=== PATIENT | female | born 1985 | race African-American/Black ===

== ENCOUNTER → 2016-05-29 10:06 | Outpatient (CLI) | payer MEDICAID ==
[~2016-05-29 10:06] MED LIST: GLUCOTROL ER2.5 MG PO; GLYBURIDE2.5 MG PO; HYDROCODON-ACE1 EAC7 PO; IBUPROFEN600 MG PO; PRENATABS RX TA1 TAB PO
--- NOTE | 2016-05-29 14:29 | NUR ---
Nutrition education for CORRINE: Pt reports drinking a lot of juice, regular soda, Diogenes Aid, sweet tea every day. Pt eats fast food every day and skips lunch every day. Pt does drink water. Pt likes salad and uses very little salad dressing. Pt does not get any physical activity. Pts glucose has been running very high since last week according to her glucose log. Pt eats a lot of starchy vegetables every day. Reviewed CHO containing foods and the affect CHO have on glucose. Reviewed portion sizes of common CHO foods. Reviewed sample menus with emphasis on CHO. RDN stressed the importance of never skipping meals; eat meals about the same time every day and limit CHO to no more than 60 gms CHO at meals and 30 gms CHO at snacks. Pt also advised to drink only water to quench thrist and with meals; eliminate all sugary drinks. Pt with fair understanding of information provided. RDN feels pt is going to try to be compliant with informatiom provided. Provided pt with printed diet information and RDN name and phone number. RDN will be available if needed. Thank you for the consult.
[2016-07-23 09:15] VITALS: BMI 33.9
== END | disposition home or self-care (01) ==
LOC: D.FANS 10:06
DX: O24.419 Gestational diabetes mellitus in pregnancy, unspecified control (principal)

== ENCOUNTER → 2016-06-05 10:50 | Outpatient (CLI) | payer MEDICAID ==
[2016-07-23 09:15] VITALS: BMI 33.9
== END | disposition home or self-care (01) ==
LOC: D.LDO 10:50
DX: O16.3 Unspecified maternal hypertension, third trimester (principal); Z3A.32 32 weeks gestation of pregnancy; O36.8130 Decreased fetal movements, third trimester, not applicable or unspecified; O24.913 Unspecified diabetes mellitus in pregnancy, third trimester

== ENCOUNTER → 2016-06-08 11:27 | Outpatient (CLI) | payer MEDICAID ==
[2016-07-23 09:15] VITALS: BMI 33.9
== END | disposition home or self-care (01) ==
LOC: D.LDO 11:27
DX: O24.419 Gestational diabetes mellitus in pregnancy, unspecified control (principal); O16.3 Unspecified maternal hypertension, third trimester; Z3A.32 32 weeks gestation of pregnancy

== ENCOUNTER → 2016-06-10 12:39 | Outpatient (CLI) | payer MEDICAID ==
[2016-07-23 09:15] VITALS: BMI 33.9
== END | disposition home or self-care (01) ==
LOC: D.LDO 12:39
DX: O13.3 Gestational [pregnancy-induced] hypertension without significant proteinuria, third trimester (principal); Z3A.32 32 weeks gestation of pregnancy; O24.913 Unspecified diabetes mellitus in pregnancy, third trimester

== ENCOUNTER → 2016-06-13 10:31 | Outpatient (CLI) | payer MEDICAID ==
[2016-07-23 09:15] VITALS: BMI 33.9
== END | disposition home or self-care (01) ==
LOC: D.LDO 10:31
DX: O24.419 Gestational diabetes mellitus in pregnancy, unspecified control (principal); O10.913 Unspecified pre-existing hypertension complicating pregnancy, third trimester; Z3A.33 33 weeks gestation of pregnancy

== ENCOUNTER → 2016-06-17 12:40 | Outpatient (CLI) | payer MEDICAID ==
[2016-06-17 13:31] LABS: BASOPHILS 0.1 % (0.0-2.0); EOSINOPHILS 0.5 % (0-7); HEMATOCRIT 39.3 % (36.0-48.0); HEMOGLOBIN 13.3 g/dL (12-16); IMMATURE GRANULOCYTES 0.1 % (0-5); LYMPHOCYTES 14.1 % (15-50); MCH 30.6 pg (26.0-34.0); MCHC 33.8 g/dL (31.0-37.0); MCV 90.3 fL (80.0-100.0); MEAN PLATELET VOLUME 11.3 fL (7.4-10.4); MONOCYTES 8.2 % (2-11); PLATELET COUNT 179 10x3/uL (130-400); RBC 4.35 10x6/uL (4.00-5.40); RDW 12.5 % (11.5-14.5); WBC 8.7 10x3/uL (4.8-10.8)
[2016-06-17 13:46] LABS: ALBUMIN 3.1 g/dL (3.4-5.0); ALKALINE PHOSPHATASE 122 U/L (46-116); ALT (SGPT) 27 U/L (10-68); CALC OSMOLALITY 269 mosm/kg (275-300); CALCIUM 8.6 mg/dL (8.5-10.1); CARBON DIOXIDE 24.2 mmol/L (21.0-32.0); CHLORIDE - SERUM 103 mmol/L (98-107); CREATININE - SERUM 0.7 mg/dL (0.6-1.3); GLUCOSE 95 mg/dL (74-106); POTASSIUM - SERUM 4.3 mmol/L (3.5-5.1); PROTEIN - SERUM 6.7 g/dL (6.4-8.2); SODIUM 136 mmol/L (136-145); UREA NITROGEN 7 mg/dL (7-18); eGFR NON AFRICAN AMERICAN > 90 mL/min (90-120)
[2016-06-17 13:53] LABS: APPEARANCE CLEAR (CLEAR); BILIRUBIN NEGATIVE (NEGATIVE); COLOR STRAW (YELLOW); GLUCOSE NEGATIVE (NEGATIVE); KETONE NEGATIVE (NEGATIVE); LEUKOCYTE ESTERASE NEGATIVE (NEGATIVE); NITRITE NEGATIVE (NEGATIVE); PROTEIN NEGATIVE (NEGATIVE); UROBILINOGEN NORMAL (NORMAL)
[2016-07-23 09:15] VITALS: BMI 33.9
== END | disposition home or self-care (01) ==
LOC: D.LDO 12:40
PROVIDERS: Obstetrics & Gynecology
DX: Z34.83 Encounter for supervision of other normal pregnancy, third trimester (principal); R51 Headache

== ENCOUNTER → 2016-06-20 12:13 | Outpatient (CLI) | payer MEDICAID ==
[2016-07-23 09:15] VITALS: BMI 33.9
== END | disposition home or self-care (01) ==
LOC: D.LDO 12:13
DX: O16.3 Unspecified maternal hypertension, third trimester (principal); Z3A.34 34 weeks gestation of pregnancy; O24.913 Unspecified diabetes mellitus in pregnancy, third trimester

== ENCOUNTER → 2016-06-24 12:45 | Outpatient (CLI) | payer MEDICAID ==
[2016-07-23 09:15] VITALS: BMI 33.9
== END | disposition home or self-care (01) ==
LOC: D.LDO 12:45
DX: O16.3 Unspecified maternal hypertension, third trimester (principal); O24.429 Gestational diabetes mellitus in childbirth, unspecified control; Z3A.34 34 weeks gestation of pregnancy; Z37.0 Single live birth

== ENCOUNTER → 2016-07-01 12:43 | Outpatient (CLI) | payer MEDICAID ==
[2016-07-23 09:15] VITALS: BMI 33.9
== END | disposition home or self-care (01) ==
LOC: D.LDO 12:43
DX: O13.3 Gestational [pregnancy-induced] hypertension without significant proteinuria, third trimester (principal); Z3A.35 35 weeks gestation of pregnancy; O24.913 Unspecified diabetes mellitus in pregnancy, third trimester

== ENCOUNTER 2016-07-03 21:04 | Outpatient (CLI) | payer MEDICAID ==
[2016-07-03 22:09] LABS: HEMATOCRIT 37.2 % (36.0-48.0); HEMOGLOBIN 12.6 g/dL (12-16); MCH 29.9 pg (26.0-34.0); MCHC 33.9 g/dL (31.0-37.0); MCV 88.2 fL (80.0-100.0); RBC 4.22 10x6/uL (4.00-5.40); RDW 12.5 % (11.5-14.5); WBC 6.9 10x3/uL (4.8-10.8)
[2016-07-03 22:22] LABS: CALC OSMOLALITY 272 mosm/kg (275-300); CALCIUM 9.5 mg/dL (8.5-10.1); CARBON DIOXIDE 25.3 mmol/L (21.0-32.0); CHLORIDE - SERUM 102 mmol/L (98-107); CREATININE - SERUM 0.7 mg/dL (0.6-1.3); GLUCOSE 99 mg/dL (74-106); POTASSIUM - SERUM 3.8 mmol/L (3.5-5.1); SODIUM 137 mmol/L (136-145); UREA NITROGEN 10 mg/dL (7-18); URIC ACID 7.3 mg/dL (2.6-7.2); eGFR NON AFRICAN AMERICAN > 90 mL/min (90-120)
[2016-07-05 13:31] LABS: PROTEIN - URINE 10.5 mg/dL (0.0-11.9)
[2016-07-23 09:15] VITALS: BMI 33.9
== END 2016-07-04 03:44 | disposition home or self-care (01) ==
LOC: D.LDO 21:04 → D.LD 23:00 → D.LDO 07-04 03:44
PROVIDERS: Obstetrics & Gynecology
DX: Z34.83 Encounter for supervision of other normal pregnancy, third trimester (principal); G44.209 Tension-type headache, unspecified, not intractable

== ENCOUNTER → 2016-07-08 10:45 | Outpatient (CLI) | payer MEDICAID ==
[2016-07-23 09:15] VITALS: BMI 33.9
== END | disposition home or self-care (01) ==
LOC: D.LDO 10:45
DX: O24.419 Gestational diabetes mellitus in pregnancy, unspecified control (principal); O36.8130 Decreased fetal movements, third trimester, not applicable or unspecified; Z3A.36 36 weeks gestation of pregnancy; O16.3 Unspecified maternal hypertension, third trimester

== ENCOUNTER → 2016-07-11 12:20 | Outpatient (CLI) | payer MEDICAID ==
[2016-07-23 09:15] VITALS: BMI 33.9
== END | disposition home or self-care (01) ==
LOC: D.LDO 12:20
DX: O24.419 Gestational diabetes mellitus in pregnancy, unspecified control (principal); O16.3 Unspecified maternal hypertension, third trimester; Z3A.37 37 weeks gestation of pregnancy

== ENCOUNTER → 2016-07-15 10:55 | Outpatient (CLI) | payer MEDICAID ==
[2016-07-15 12:15] LABS: BASOPHILS 0.2 % (0.0-2.0); EOSINOPHILS 0.7 % (0-7); HEMATOCRIT 38.5 % (36.0-48.0); HEMOGLOBIN 12.8 g/dL (12-16); IMMATURE GRANULOCYTES 0.2 % (0-5); MCHC 33.2 g/dL (31.0-37.0); MCV 87.3 fL (80.0-100.0); MEAN PLATELET VOLUME 11.9 fL (7.4-10.4); MONOCYTES 7.8 % (2-11); NEUTROPHILS 75.1 % (40-80); PLATELET COUNT 137 10x3/uL (130-400); RBC 4.41 10x6/uL (4.00-5.40); RDW 12.2 % (11.5-14.5)
[2016-07-15 12:47] LABS: CALC OSMOLALITY 275 mosm/kg (275-300); CALCIUM 8.3 mg/dL (8.5-10.1); CARBON DIOXIDE 21.7 mmol/L (21.0-32.0); CHLORIDE - SERUM 104 mmol/L (98-107); CREATININE - SERUM 0.7 mg/dL (0.6-1.3); GLUCOSE 108 mg/dL (74-106); POTASSIUM - SERUM 4.2 mmol/L (3.5-5.1); SODIUM 138 mmol/L (136-145); UREA NITROGEN 11 mg/dL (7-18); URIC ACID 7.3 mg/dL (2.6-7.2); eGFR NON AFRICAN AMERICAN > 90 mL/min (90-120)
[2016-07-15 13:54] LABS: ALBUMIN 2.6 g/dL (3.4-5.0); BILIRUBIN - DIRECT 0.07 mg/dL (0.00-0.30); BILIRUBIN - INDIRECT 0.18 mg/dL (0.00-1.00); BILIRUBIN - TOTAL 0.25 mg/dL (0.2-1.3); PROTEIN - SERUM 6.3 g/dL (6.4-8.2)
[2016-07-17 10:03] LABS: PROTEIN - URINE 14.6 mg/dL (0.0-11.9)
[2016-07-23 09:15] VITALS: BMI 33.9
== END | disposition home or self-care (01) ==
LOC: D.LDO 10:55
PROVIDERS: Obstetrics & Gynecology
DX: O24.419 Gestational diabetes mellitus in pregnancy, unspecified control (principal); O16.3 Unspecified maternal hypertension, third trimester; Z3A.37 37 weeks gestation of pregnancy

== ENCOUNTER → 2016-07-18 10:50 | Outpatient (CLI) | payer MEDICAID ==
[2016-07-23 09:15] VITALS: BMI 33.9
== END | disposition home or self-care (01) ==
LOC: D.LDO 10:50
DX: O10.913 Unspecified pre-existing hypertension complicating pregnancy, third trimester (principal); Z3A.38 38 weeks gestation of pregnancy

== ENCOUNTER 2016-07-22 05:05 | Inpatient (IN) | payer MEDICAID ==
[~2016-07-22] VITALS: Ht 175.3 cm; Wt 104.3 kg
[2016-07-22 05:51] LABS: HEMATOCRIT 36.7 % (36.0-48.0); HEMOGLOBIN 12.3 g/dL (12-16); MCH 29.3 pg (26.0-34.0); MCHC 33.5 g/dL (31.0-37.0); MCV 87.4 fL (80.0-100.0); MEAN PLATELET VOLUME 12.5 fL (7.4-10.4); RBC 4.2 10x6/uL (4.00-5.40); RDW 12.5 % (11.5-14.5); WBC 6.9 10x3/uL (4.8-10.8)
[2016-07-22] MEDS ORDERED: GLUCOTROL ER2.5 MG PO (05:56)
[2016-07-22] MEDS ORDERED: HYDROCODON-ACE1 EAC7 PO (05:57)
[2016-07-22] MEDS ORDERED: GLYBURIDE2.5 MG PO (05:58)
[2016-07-22] MEDS ORDERED: PRENATABS RX TA1 TAB PO (05:58)
[2016-07-22 06:03] VITALS: BP 130/79; BMI 34.0
[2016-07-22 06:36] LABS: APPEARANCE CLEAR (CLEAR); BILIRUBIN NEGATIVE (NEGATIVE); COLOR STRAW (YELLOW); GLUCOSE NEGATIVE (NEGATIVE); KETONE NEGATIVE (NEGATIVE); LEUKOCYTE ESTERASE NEGATIVE (NEGATIVE); NITRITE NEGATIVE (NEGATIVE); PROTEIN NEGATIVE (NEGATIVE); UROBILINOGEN NORMAL (NORMAL)
[2016-07-22 06:40] LABS: UDS - AMPHET NEGATIVE QUAL (NEGATIVE); UDS - BARB NEGATIVE QUAL (NEGATIVE); UDS - BENZO NEGATIVE QUAL (NEGATIVE); UDS - COCAINE NEGATIVE QUAL (NEGATIVE); UDS - METH NEGATIVE QUAL (NEGATIVE); UDS - OPIATE NEGATIVE QUAL (NEGATIVE); UDS - PCP NEGATIVE QUAL (NEGATIVE); UDS - THC POSITIVE QUAL (NEGATIVE)
--- NOTE | 2016-07-22 19:20 | NUR ---
PT RECEIVED TO MY CARE IN LDR 1277. PT RESTING IN BED IN RIGHT LATERAL POSITION IN NO ACUTE DISTRESS. PT IS A 31YO @ 38.6 WKS IUP ADMITTED THIS AM FOR INDUCTION OF LABOR R/T GESTATIONAL HTN AND GESTATIONAL DM. PT WITH FAILED PITOCIN INDUCTION, PER DR. RICARDO, AND SCHEDULED FOR PRIMARY C/S IN AM @ 0730. AAOX3. HR REGULAR. LUNGS CTAB. ABDOMEN GRAVID AND NON TENDER. PT DENIES LOF OR VAGINAL BLEEDING. STATES +FM. SCD'S IN PLACE TO LOWER EXTREMITIES BILATERALLY. 1+EDEMA NOTED TO UPPER AND LOWER EXTREMITIES BILATERALLY. 18G IV IN PLACE TO RIGHT HAND, FLUSHED WITH 5CC NS AT THIS TIME WITHOUT DIFFICULTY. NO REDNESS OR EDEMA NOTED AT SITE. PT DENIES TRACY, VISION CHANGES, OR RUQ PAIN. VS STABLE AND FHR 130'S. POC DISCUSSED WITH PT, QUESTIONS ANSWERED. DISCUSSED PRE-OP PLAN FOR PT IN AM. QUESTIONS ANSWERED. SUPPLIES PROVIDED TO PT TO SHOWER. FOOD PROVIDED TO PT BY FAMILY, INFORMED PT TO BE NPO AFTER MIDNIGHT. PT DOES DESIRE AMBIEN TO ASSIST WITH SLEEPING. ORDER IN PLACE, WILL PROVIDE WHEN PT REQUESTS. PT DENIES ANY FURTHER NEEDS AT THIS TIME. BED IN LOW POSITION, SIDE RAILS UP TIMES 2, CALL LIGHT AND PHONE IN REACH. SO REMAINS AT PT BS FOR SUPPORT AND ASSISTANCE. WILL CONT TO MONITOR PT STATUS.
[2016-07-22 19:33] VITALS: BP 118/67
--- NOTE | 2016-07-22 20:07 | NUR ---
RN TO PT BS. FSBS 120, WILL CONT TO MONITOR, PT READY TO SLEEP AND NPO AFTER MIDNIGHT. AMBIEN 10MG PROVIDED TO PT PER REQUEST WITH ICE WATER. PT DENIES ANY FURTHER NEEDS. BED IN LOW POSITION, SIDE RAILS UP TIMES 2, CALL LIGHT AND PHONE IN REACH. SO REMAINS AT PT BS FOR SUPPORT AND ASSISTANCE. WILL CONT TO MONITOR PT STATUS.
--- NOTE | 2016-07-22 22:10 | NUR ---
RN TO PT BS FOR ROUNDS. PT RESTING IN BED IN SEMI-FOWLERS POSITION, WITH EYES CLOSED, IN NO ACUTE DISTRESS. RESPIRATIONS EVEN AND UNLABORED. BED IN LOW POSITION, SIDE RAILS UP TIMES 2, CALL LIGHT AND PHONE IN REACH. WILL CONT TO MONITOR PT STATUS.
[2016-07-23] VITALS (15 sets, daily range): BP systolic 98–155; BP diastolic 66–86; Ht 175.3 cm; Wt 104.3 kg
--- NOTE | 2016-07-23 00:04 | NUR ---
RN TO PT BS. PT SITTING IN BED IN NO ACUTE DITRESS. VS TAKEN, WNL. FHR 150'S-160'S WITH AUDIABLE MOVEMENT NOTED. FSBS 63, PT ABOUT TO EAT SNACK THAT WAS PROVIDED BY FAMILY PRIOR TO BEING NPO AFTER MIDNIGHT. WILL RECHECK FSBS IN 4 HOURS. PT DENIES ANY FURTHER NEEDS AT THIS TIME. BED IN LOW POSITION, SIDE RAILS UP TIMES 2, CALL LIGHT AND PHONE IN REACH. SO REMAINS AT PT BS FOR SUPPORT AND ASSISTANCE. WILL CONT TO MONITOR PT STATUS.
--- NOTE | 2016-07-23 01:53 | NUR ---
RN TO PT BS FOR ROUNDS. PT SITTING IN BED IN NO ACUTE DISTRESS. PT DENIES ANY NEEDS AT THIS TIME. BED IN LOW POSITION, SIDE RAILS UP TIMES 2, CALL LIGHT AND PHONE IN REACH. SO REMAINS AT PT BS FOR SUPPORT AND ASSISTANCE.
--- NOTE | 2016-07-23 04:10 | NUR ---
RN TO PT BS. PT SITTING IN BED IN NO ACUTE DISTRESS. VS TAKEN, WNL. FHR 140'S-150'S. FSBS TAKEN, 123, NO ACTION TAKEN, PT NPO. PT DENIES ANY NEEDS AT THIS TIME. BED IN LOW POSITION, SIDE RAILS UP TIMES 2, CALL LIGHT AND PHONE IN REACH. SO REMAINS AT PT BS FOR SUPPORT AND ASSISTANCE. WILL CONT TO MONITOR PT STATUS.
--- NOTE | 2016-07-23 05:48 | NUR ---
CHLORIHEXIDINE WIPES PROVIDED TO PT WITH INSTRUCTIONS ON USE. PT VERBALIZED UNDERSTANDING.
--- NOTE | 2016-07-23 06:14 | NUR ---
RN TO PT BS TO PREPARE PT FOR OR. VS TAKEN, WNL, FHR 130'S-140'S. FSBS TAKEN, 136, PT STATES SHE HAS NOT HAD ANYTHING BY MOUTH SINCE 0400 FSBS WAS TAKEN. NO ACTION TAKEN FOR FSBS, PT CONT TO BE NPO FOR PRIMARY C/S. NO ABDOMINAL CLIP NEEDED. SCD'S IN PLACE. LR SET TO INFUSE VIA PUMP AT 500ML TO EXISTING 18G SL IN LEFT HAND, NO REDNESS OR EDEMA NOTED AT SITE. OR SUIT PROVIDED TO PT. PT DENIES ANY FURTHER NEEDS AT THIS TIME. BED IN LOW POSITION, SIDE RAILS UP TIMES 2, CALL LIGHT AND PHONE IN REACH. SO REMAINS AT PT BS FOR SUPPORT AND ASSISTANCE.
[2016-07-23 07:26] LABS: RAPID PLASMA REAGIN Non Reactive (Non Reactive)
--- NOTE | 2016-07-23 09:20 | NUR ---
PATIENT RECEIVED TO ROOM 1214 ACCOMPANIED BY RECOVERY ROOM NURSE. SHE IS AWAKE AND ALERT, REMAINS NUMB FROM THE SPINAL BLOCK. SCD'S INITIATED, VSS, IVF REASSERTED TO THE LEFT HAND. THE INSERTION SITE IS PATENT, WITHOUT REDNESS, SWELLING. HER DRESSING TO THE BIKINI INCISION IS C/D/I. HER FUNDUS IS FIRM U/1 AND MIDLINE. HER BLEEDING IS MODERATE SHE IS TURNED FROM SIDE TO SIDE TO EXCHANGE THE PADS UNDERNEATH HER. [employer] DRIVER INITIATED AND EXPLAINED. THE PATINET VERBALIZES AND DEMONSTRATES UNDERSTANDING. MARTI CATHETER IS PATIENT TO BEDISDE DRAINAGE BAG. LEFT HER WITH FOB. [employer] DRIVER AND CALL LIGHT WITHIN HER REACH.
--- NOTE | 2016-07-23 09:50 | NUR ---
ADITIONAL BLANKET PROVIDED PER REQUEST. FF AND MIDLINE, REMAINS U/1, BLEEDING IS SMALL. FAMILY STEPPED OUT TO ALLOW FOR ASSESSMENT. COOLER WORKER IN USE. SHE IS BEGINING TO FEEL THE PRESSURE OF PALPATION.
--- NOTE | 2016-07-23 10:16 | NUR ---
PATIENT RESTING WITH HOB UP 45 DEGREES. USING PACE ANALYST. RATES PAIN A 4-5 IN HER ABDOMEN/INCISION. IVF INFUSING PER ORDERS TO THE LEFT HAND. LAID HER FLAT. HER BLEEDING IS SMALL. FF, MIDLINE, U/2. SHE WINCES AND BREATHS THROUGHT THE PAIN OF PALPATION. NO GUSHES OF BLOOD NOTED FROM THE VAGINA. HER MOTHER, FATHER AND FOB ARE AT THE BEDSIDE. FRESH WATER PROVIDED.
[2016-07-23 10:38] LABS: BASOPHILS 0 % (0.0-2.0); EOSINOPHILS 0.3 % (0-7); HEMATOCRIT 35.9 % (36.0-48.0); HEMOGLOBIN 11.8 g/dL (12-16); IMMATURE GRANULOCYTES 0.3 % (0-5); LYMPHOCYTES 14.1 % (15-50); MCH 28.8 pg (26.0-34.0); MCHC 32.9 g/dL (31.0-37.0); MCV 87.6 fL (80.0-100.0); MEAN PLATELET VOLUME 12.2 fL (7.4-10.4); MONOCYTES 5.9 % (2-11); NEUTROPHILS 79.4 % (40-80); PLATELET COUNT 135 10x3/uL (130-400); RDW 12.6 % (11.5-14.5); WBC 6.1 10x3/uL (4.8-10.8)
--- NOTE | 2016-07-23 11:20 | NUR ---
PATIENT GIVEN TORADOL FOR PAIN. HER BLEEDING REMAINS LIGHT, FF, MIDLINE. PERIPADS CHANGED. HER MOTHER REMAINS AT HER BEDSIDE. SHE IS ANXIOUS TO SEE HER INFANT.
--- NOTE | 2016-07-23 12:39 | NUR ---
PATIENT'S PERIPAD IS SATURATED. HER FUNDUS BECAME FIRM AFTER DEEP, GENTLE PALPATION, THERE WASN'T ANY VAGINAL BLEEDING NOTED DURING PALPATION. HER CATHETER HAS 150CC OF URINE TOT HE UROMETER, EMPTIED. CALL LIGHT WITHIN REACH. SHE DENIES PAIN UNLESS "I MOVE THE WRONG WAY OR YOU'R PRESSING ON IT." IVF CONTINUE TO INFUSE. IT SOLUTIONS ARCHITECT IN USE. SHE IS ANXIOUS TO SEE HER BABY.
--- NOTE | 2016-07-23 14:01 | NUR ---
ASSISTED PATO WITH . ABLE TO LATCH ON THE LEFT BREAST WITH A NIPPLE SHIELD. FOB AND PATO'S MOTHER ARE HELPFUL TO HER. ENCOURAGED PATIENTCE AND PERSISTENCE. PATIENT STATES THAT HER PAIN IS CURRENTLY CONTROLLED. URINE IS PATENT TO THE BEDSIDE DRAINAGE.
--- NOTE | 2016-07-23 14:40 | NUR ---
PATIENT'S FF, MIDLINE, DEEP U/2. BLEEDING MODERATE. PERIPAD AND PADS CHANGED. STATLOCK SECURED TO THE RIGHT LEG. URINE PATENT TO THE BEDSIDE DRAINAGE BAG. IV CATHETER REINFORCED TO HER R HAND WITH TAPE. EDUCATED GM OF TO SWADDLE THE . PATINET DENIES DISCOMFORT AND REPOSITIONS SELF IN THE BED WELL.
--- NOTE | 2016-07-23 15:44 | NUR ---
PATIENT VOMITED 350CC OF CLEAR ORANGE LIQUID INTO AN EMISIS BAG. SHE STAT ESHTAT SHE HAS BEEN INTERMITTENTLY NAUSEOUS SINCE BEFORE HER . ZOFRAN GIVEN. EDUCATED REGARDING HER NEXT POSSIBLE DOSE AND
--- NOTE | 2016-07-23 16:02 | NUR ---
SPOKE WITH DR. RICARDO, REPORTED N/V. RECEIVED ORDER FOR BEDADRYL FOR PATINET C/O ITCHING. DISCUSSED FSBS. WILL DELAY CHECKING HER AGAIN UNTIL SHE HAS RESUMED REGULAR DIET.
--- NOTE | 2016-07-23 17:28 | NUR ---
PATIENT WITH 100CC OF URINE TO THE BEDSIDE DRAINAGE BAG. VSS, DENIES NAUSEA AND STATES THE ITCHING IS "MUCH BETTER". IVF CONTINUE TO INFUSE, BLEEDING REMAINS SMALL TO MODERATE. CALL LIGHT WITHIN REACH. PROVIDED HER WITH A POPSCICLE PER REQUEST. MOTHER AT THE BEDSIDE HOLDING . MONITORING.
[2016-07-23 17:52] LABS: BASOPHILS 0.1 % (0.0-2.0); EOSINOPHILS 0.3 % (0-7); HEMATOCRIT 36.7 % (36.0-48.0); IMMATURE GRANULOCYTES 0.1 % (0-5); LYMPHOCYTES 12.4 % (15-50); MCHC 32.7 g/dL (31.0-37.0); MCV 88.6 fL (80.0-100.0); MEAN PLATELET VOLUME 12.5 fL (7.4-10.4); MONOCYTES 5.9 % (2-11); NEUTROPHILS 81.2 % (40-80); PLATELET COUNT 121 10x3/uL (130-400); RBC 4.14 10x6/uL (4.00-5.40); RDW 12.5 % (11.5-14.5)
--- NOTE | 2016-07-23 18:03 | NUR ---
BLEEDING SCANT, PERIPADS SMUDGED, CHANGED. 800CC OF URINE EMPTIED FROM MARTI COLLECTION BAG. IV SITE REMAINS WITHOUT REDNESS, IRRITATION. PATIENT DENIES PAIN. STATES THAT SHE WANTS TO REST FOR A WHILE. INFANT TO NURSERY. PARENTS OUT FOR A WALK. CALL LIGHT IS WITHIN HER REACH. LIGHTS OUT.
[2016-07-23 18:05] LABS: WBC 9.7 10x3/uL (4.8-10.8)
--- NOTE | 2016-07-23 19:15 | NUR ---
PT RECEIVED SITTING UP IN BED AWAKE AND ALERT. FOB AT BEDSIDE. VSS. IV NOTED TO LEFT HAND. INFUSING NS WITH PIT @ 125 CC/HR WITH DILAUDID LEAD INFORMATICA DEVELOPER. PATENT. DRESSING CDI. PT RATES PAIN 6/10. HEART RRR. LUNG SOUNDS CLEAR BILATERALLY. BOWEL SOUNDS ACTIVE X4 QUAD. LOW TRANSVERSE INCISION NOTED TO ABDOMEN WITH DRESSING. CDI. FFM. ABDOMEN SOFT WITH TENDERNESS NOTED. SCANT LOCHIA RUBRA NOTED TO ROSY PAD. REPLACED WITH CLEAN PAD. SCDS NOTED TO BLE. PT REQUESTS ICE PACK AT THIS TIME. DENIES OTHER NEEDS. BED LOW. PHONE AND CALL LIGHT IN REACH. SRX2.
--- NOTE | 2016-07-23 20:12 | NUR ---
CHANGED PT INSEMINATOR FROM DILAUDID TO DEMEROL AT THIS TIME PER ORDERS DUE TO PT C/O ITCHING. WILL CONTINUE TO MONITOR. PT DENIES NEEDS. FOB AT BEDSIDE. IN PTS ARMS.
--- NOTE | 2016-07-23 20:50 | NUR ---
REASSESSED PTS PAIN. RATES PAIN /10. REQUESTS ICE WATER AND A POPSICLE AT THIS TIME. DENIES OTHER NEEDS. BED LOW. PHONE AND CALL LIGHT IN REACH. SRX2.
--- NOTE | 2016-07-23 22:26 | NUR ---
PT LYING IN BED WITH AND FOB AT BEDSIDE. CHANGED ROSY PAD AND BLUE PAD UNDER PT. MODERATE LOCHIA RUBRA NOTED TO ROSY PAD. SCANT LOCHIA RUBRA NOTED TO BLUE PAD. ADMINISTERED BENADRYL IVP AT THIS TIME PER ORDERS FOR PTS C/O ITCHING. PT DENIES OTHER NEEDS AT THIS TIME. BED LOW. PHONE AND CALL LIGHT IN REACH. SRX2.
--- NOTE | 2016-07-23 22:50 | NUR ---
MODERATE LOCHIA RUBRA NOTED TO ROSY PAD WITH TWO PEA SIZE CLOTS. PLACED NEW ROSY PAD ON PT. DENIES NEEDS AT THIS TIME.
--- NOTE | 2016-07-23 23:54 | NUR ---
PT SITTING UP IN BED. AWAKE AND ALERT. BP 98/69 P-74 O2-97% RESP-18 EVEN, NON-LABORED. SMALL LOCHIA RUBRA NOTED TO ROSY PAD. PLACED CLEAN PAD ON PT. EMPTIED 900 CC FROM MARTI BAG AT THIS TIME. PT RATES PAIN /. PT REQUESTS INFANT BE HANDED TO HER AT THIS TIME SO SHE CAN BREASTFEED. DENIES OTHER NEEDS. BED LOW. PHONE AND CALL LIGHT IN REACH. SRX2
--- NOTE | 2016-07-24 01:58 | NUR ---
PT LYING IN BED RESTING QUIETLY WITH EYES CLOSED. AROUSED EASILY. MODERATE LOCHIA RUBRA NOTED TO ROSY PAD AND BLUE PAD UNDER PT. PLACED CLEAN PADS UNDER PT. REQUESTS MORE ICE FOR ICE PACK AT THIS TIME. DENIES OTHER NEEDS. BEDL LOW. PHONE AND CALL LIGHT IN REACH. SRX2.
[2016-07-24 04:40] VITALS: BP 127/76
--- NOTE | 2016-07-24 04:40 | NUR ---
PT RESTING QUIETLY AT THIS TIME WATCHING TV. FOB AT BEDSIDE. VSS. EMPTIED 900 CC FROM MARTI AT THIS TIME. ADMINISTERED BENADRYL IVP PER ORDERS FOR PT C/O ITCHING. PT REQUESTS ICE PACK AND ANOTHER PILLOW AT THIS TIME. HELPED PT REPOSITION TO RIGHT SIDE. PT DENIES FURTHER NEEDS. BED LOW. PHONE AND CALL LIGHT IN REACH. SRX2.
--- NOTE | 2016-07-24 06:33 | NUR ---
PT FSBS 74 AT THIS TIME. PT DENIES NEEDS. BED LOW. PHONE AND CALL LIGHT IN REACH. SRX2.
[2016-07-24 06:52] LABS: BASOPHILS 0.2 % (0.0-2.0); HEMATOCRIT 33.2 % (36.0-48.0); HEMOGLOBIN 10.8 g/dL (12-16); MCH 28.5 pg (26.0-34.0); MCHC 32.5 g/dL (31.0-37.0); MCV 87.6 fL (80.0-100.0); MEAN PLATELET VOLUME 12.2 fL (7.4-10.4); MONOCYTES 4.7 % (2-11); NEUTROPHILS 77.1 % (40-80); PLATELET COUNT 126 10x3/uL (130-400); RBC 3.79 10x6/uL (4.00-5.40); RDW 12.6 % (11.5-14.5)
[2016-07-24 07:07] LABS: WBC 6.2 10x3/uL (4.8-10.8)
[2016-07-24 07:15] VITALS: BP 126/79
--- NOTE | 2016-07-24 07:15 | NUR ---
PT WAS RECEIVED THIS AM SITTING UP IN BED, HOLDING BABY. VSS. HER PAIN IS A 6/10. HER IV WAS SALINE LOCKED. SALINE LOCK IS PATENT. DEMEROL GEOSPATIAL TECHNOLOGIST ALSO D'CD. MARTI INTACT WITH GOOD URINE OUTPUT. SCD'S INTACT. GEN- AWAKE AND ALERT. LUNGS- CLEAR. HEART- RRR. ABD- SOFT WITH TENDERNESS. INCISION CLEAN AND DRY WITH PRIMAPORE DRESSING INTACT. SHE REQUESTED NEW ICE PACK FOR INCISION. GIVEN AND PLACED. BED IS LOW, CALL LIGHT IS IN REACH AND SIDE RAILS UP X 2.
--- NOTE | 2016-07-24 08:06 | NUR ---
I CALLED DR RICARDO TO GET ORDER FOR ORAL PIAN MED. HE ORDERED MOTRIN 600 MG Q 4 H PRN. NORCO 5/325 1 Q 4 H PRN PAIN AND NORCO 10 MG 1 Q 4 H PRN FOR MORE PAIN.
--- NOTE | 2016-07-24 08:18 | NUR ---
PT REQUESTED PAIN MED FOR PAIN RATED AT A 6. NORCO 10/325 MG GIVEN.
--- NOTE | 2016-07-24 08:30 | NUR ---
DR RICARDO IS HERE TO SEE PT. NEW ORDERS NOTED.
--- NOTE | 2016-07-24 08:30 | NUR ---
MARTI D'CD. 850 CC JONNY COLORED URINE NOTED.
--- NOTE | 2016-07-24 10:28 | NUR ---
PT IS UP TO SHOWER. SHE VOIDED 400 CC JONNY COLORED URINE. LINEN CHANGE DONE. MOTHER AND BABY AT BEDSIDE.
--- NOTE | 2016-07-24 11:59 | NUR ---
PT STATES HER PAIN IS ABOUT A 6 AND REQUESTED PAIN MED AGAIN. NORCO 10/325 1 PO GIVEN. HER MOTHER IS AT BEDSIDE. BABY ALSO WITH MOM. PT IS HOLDING BABY. BED IS LOW, SIDE RAILS UP X 2 AND CALL LIGHT IN REACH. CALL LIGHT IS IN REACH.
--- NOTE | 2016-07-24 12:11 | NUR ---
PTS BS WAS CHECKED PRIOR TO LUNCH. BS WAS 118.
--- NOTE | 2016-07-24 14:05 | NUR ---
PT IS SITTING UP ON SIDE OF THE BED. STATES THAT SHE WOULD LIKE SOME ICE TEA. HER MOTHER IS AT BEDSIDE AND BABY IS ALSO AT BEDSIDE. BED IS LOW, SIDE RAILS UP X 2 AND CALL LIGHT IN REACH. PT HAS VOIDED X 2.
--- NOTE | 2016-07-24 15:37 | NUR ---
PT IS RESTING IN BED. SHE STATES HER PAIN IS COMING BACK AND WAS GOING TO SEE IF IT WAS TIME FOR A PAIN PILL. I TOLD HER I WOULD CHECK AND LET HER KNOW.
--- NOTE | 2016-07-24 16:14 | NUR ---
PAIN MEDICINE GIVEN. PT IS RESTING IN BED. BED IS LOW. SIDE RAIL UP X 2 AND CALL LIGHT IN REACH.
--- NOTE | 2016-07-24 17:01 | NUR ---
PT WENT TO THE BATHROOM FOR THE 3 RD TIME AND SHE VOIDED 650 CC. SHE HAD A FEW CLOTS IN HER URINE.
--- NOTE | 2016-07-24 18:06 | NUR ---
PT STATES HER IV AND THE TAPE IS COMING OFF. TOOK OFF ALL THE TAPE AND REDRESSED. SALINE LOCK IS PATENT. PT STATES THAT SHE IS DOING WELL AND OFFERS NO COMPLAINTS. BABY AND PT'S BEST FRIEND IS AT BEDSIDE. BED IS LOW, SIDE RAILS UP X 2 AND CALL LIGHT IN REACH.
[2016-07-24 19:00] VITALS: BP 134/85
--- NOTE | 2016-07-24 19:00 | NUR ---
PT RECEIVED SITTING UP ON SIDE OF BED AAOX3. AT BEDSIDE. VSS. PT RATES PAIN 5/10. S/L NOTED TO LEFT HAND. DRESSING CDI. HEART RRR. LUNG SOUNDS CLEAR BILATERALLY. BOWEL SOUNDS ACTIVE X4 QUADRENTS. ABDOMEN SOFT WITH TENDERNESS. FFM. LOW TRANSVERSE INCISION NOTED TO ABDOMEN WITH KALPANA. NO REDNESS, SWELLING, OR PURULENT DRAINAGE NOTED. PT STATES LOCHIA HAS BEEN LIGHT TO MODERATE THROUGHOUT THE DAY. STATES SHE PASSED ONE CLOT APPROX THE SIZE OF A HALF DOLLAR AROUND 1700. STATES BLEEDING HAS BEEN LIGHT SINCE THEN WITH NO CLOTS. MODERATE LOCHIA RUBRA NOTED TO ROSY PAD AT THIS TIME. PT GETTING UP TO USE RESTROOM AT THIS TIME. DENIES NEEDS. BED LOW. PHONE AND CALL LIGHT IN REACH. SRX2.
--- NOTE | 2016-07-24 20:09 | NUR ---
PT FSBS 89 AT THIS TIME. DENIES NEEDS.
--- NOTE | 2016-07-24 21:02 | NUR ---
PT LYING IN BED WITH ON CHEST. REASSESSED PTS PAIN. RATES PAIN 3/10. DENIES NEEDS AT THIS TIME. BED LOW. PHONE AND CALL LIGHT IN REACH. SRX2.
--- NOTE | 2016-07-24 22:19 | NUR ---
PT UP PUTTING BABY IN BASSINET AT THIS TIME. REQUESTED ICE PACK. DENIES OTHER NEEDS. BED LOW. PHONE AND CALL LIGHT IN REACH. SRX2.
--- NOTE | 2016-07-24 22:44 | NUR ---
REMOVED PT S/L AT THIS TIME DUE TO LINE NOT FLUSHING AND PT C/O PAIN WHEN TRYING TO FLUSH. CATHETER TIP INTACT. PT DENIES NEEDS AT THIS TIME. BED LOW. PHONE AND CALL LIGHT IN REACH. SRX2.
[2016-07-24 23:53] VITALS: BP 121/93
--- NOTE | 2016-07-24 23:53 | NUR ---
PT SITTING UP ON SIDE OF BED HOLDING INFANT IN ARMS. BP-121/93. P-83. RESP-18 EVEN, NON-LABORED. O2-98% ROOM AIR. PT DENIES NEEDS AT THIS TIME. BED LOW. PHONE AND CALL LIGHT IN REACH. SRX2.
--- NOTE | 2016-07-25 00:47 | NUR ---
INTO ROOM AND PT. ASKED FOR TO BE TAKEN TO NBN. STATES SHE WAS ABLE TO GET LATCHED FOR THIS FEEDING BUT THAT SHE MIGHT STILL BE HUNGRY. REQUEST INFANT BE KEPT IN NURSERY "FOR A WHILE". INFANT RETURNED TO NBN AND REPORT GIVEN TO Mayco SILVERIO REGARDING PT. WISHES AND ALSO AMOUNT OF TIME INFANT BREASTFED.
--- NOTE | 2016-07-25 00:52 | NUR ---
AMBULATORY TO DESK STATING THAT HER PAIN IS AN 8 OF 10 ON PAIN SCALE FOR INCISIONAL DISCOMFORT. PT OBTAINED ICE WATER FOR SELF.
--- NOTE | 2016-07-25 00:53 | NUR ---
PAIN MED GIVEN ORDERED. PT. CURRENTLY SITTING ON SIDE OF BED.
--- NOTE | 2016-07-25 01:40 | NUR ---
PT LYING IN BED TALKING ON CELL PHONE AT THIS TIME. REASSESSED PTS PAIN. RATES PAIN /10. DENIES NEEDS. BED LOW. PHONE AND CALL LIGHT IN REACH. SRX2.
--- NOTE | 2016-07-25 03:38 | NUR ---
PT RESTING QUIETLY AT THIS TIME WITH EYES CLOSED. RESPIRATIONS EVEN, NON-LABORED. NO ACUTE DISTRESS NOTED AT THIS TIME. BED LOW. PHONE AND CALL LIGHT IN REACH. SRX2.
[2016-07-25 03:58] VITALS: BP 144/88
[2016-07-25 07:15] VITALS: BP 138/77
--- NOTE | 2016-07-25 07:30 | NUR ---
PT IS SITTING UP IN CHAIR, HOLDING HER BABY. STATES SHE WOULD LIKE TO HAVE SOME PAIN MEDICINE. STATES HER PAIN IS ABOUT A 6. SHE HAS BEEN UP AMBULATING. SHE IS VOIDING WITOUT DIFFICULTY. GEN- AWAKE AND ALERT. LUNGS- CLEAR. HEART- RRR. ABD- TENDER. INCISION CLEAN AND DRY WITH KALPANA. SMALL LOCIA RUBRA. EXT- NO EDEMA. BED IS LOW, SIDE RAILS UP X 2 AND CALL LIGHT IN REACH.
--- NOTE | 2016-07-25 08:40 | NUR ---
PT IS GETTING HER THINGS TOGETHER TO GO HOME. FOB AT BEDSIDE.
--- NOTE | 2016-07-25 09:30 | NUR ---
PT IS LYING IN BED RESTING. OFFERS NO COMPLAINTS.
--- NOTE | 2016-07-25 09:46 | NUR ---
Delma Anthony 07/25/16 LE@ 8:20 S: Patient states latches to the breast but it's hard to keep her latched because she will come off. States she feels good, this is her first baby. States had some formula not to long go, think she might be full. Last night nursed on one breast for 15 minutes then she ate for a few more minutes on the other breast, baby did really good. Would love to just breastfeed only. O: Patient in room standing up next to bed, FOB holding in chair, awake and alert. Observed feeding cues, sucking hard on pacifier. Explained takes time and patience. Asked if she would like some help with latching infant, patient states yes. Mother sits on bed, removes shirt for skin to skin, placed on mother chest. Infant attempted to self-latch on left breast. Explain to patient how to very is latched correctly at the breast, turn tummy to tummy, nose opposite of nipple, and allow infant to self-latch. attempted again to latch on left breast. latched at 8:49 to left breast, in laid back position, mouth 140 degrees, sucking in a rocking motion, round cheeks, has a great latch. Gently stimulate infant if she stops sucking more than a few minutes to wake, if needed remove infant from the breast, awake, then offer the breast again. Mother and infant both appear content with feeding; mother nipples show no signs of trauma. It's normal for an to suck, stop, and repeat the process numerous times. Breastfed babies should feed on demand. Provided handouts and explained on feeding cues, skin to skin, waking a sleeping baby, engorgement, hand expression, and positions for . Supply and demand, what baby takes out her body will make more of. It's important to latch infant for every feeding, this will help with establishing her milk supply. Explain colostrum and composition. Asked for help as needed with latching, she and infant are both doing a great job. Provided work cell number, please call or text as needed. Asked if any questions or needs, all declined, will follow up with patient. Patient thanked for helping with .Asked if she receives WIC and needs an appointment, states she made her appointment for next Friday at 10:00. A: First time mother, would like to exclusively , having some concerns about keeping latched. P: Attempt to latch infant for every feeding, ask for help as needed. Digna Benitez, CLC
[2016-07-25] MEDS ORDERED: IBUPROFEN600 MG PO (09:54)
[2016-07-25] MEDS ORDERED: HYDROCODON-ACE1 EAC7 PO (09:55)
--- NOTE | 2016-07-25 10:20 | NUR ---
PT IS AMBULATING IN HALLWAY. OFFERS NO COMPLAINTS. SHE IS READY TO GO HOME. FOB AND MOTHER AT BEDSIDE.
--- NOTE | 2016-07-25 11:06 | NUR ---
Pt requested pain medication, to early to give [place] at this time. Pt wants Motrin. Rated pain 6 on 0-10 pain scale. Denies further needs.
--- NOTE | 2016-07-25 11:23 | NUR ---
PT C/O PAIN AT A LEVEL 6/10. GIVEN MOTRIN.
--- NOTE | 2016-07-25 11:56 | NUR ---
DISCHARGE INSTRUCTIONS REVIEWED WITH PATIENT AND FOB. HANDOUTS, PRESCRIPTIONS AND FU GIOVANNI CARD GIVEN. PT OFFERS NO COMPLAINTS.
--- NOTE | 2016-07-25 12:22 | NUR ---
PT WAS TAKEN TO VEHICLE BY WHEELCHAIR.
[2016-07-25 16:15] LABS: UDSC - AMPHET Negative ng/mL (Cutoff=1000); UDSC - BARB Negative ng/mL (Cutoff=300); UDSC - BENZO Negative ng/mL (Cutoff=300); UDSC - COC Negative ng/mL (Cutoff=300); UDSC - METH Negative ng/mL (Cutoff=300); UDSC - OPIATES Negative ng/mL (Cutoff=300); UDSC - PCP Negative ng/mL (Cutoff=25); UDSC - PROPOXY Negative ng/mL (Cutoff=300); UDSC - THC Positive (Cutoff=50)
--- NOTE | 2016-07-30 09:17 | OP ---
PATIENT NAME: CHRISTINA FRANCIS MEDICAL RECORD: [id number] LOCATION:[facility].1214 ADMISSION DATE:07/22/16 SURGEON: MAHESH MOREIRA MD DATE OF OPERATION: 07/23/2016 PREOPERATIVE DIAGNOSES: 1. Term intrauterine at 38 weeks. 2. Preeclampsia. 3. Failed induction of labor. POSTOPERATIVE DIAGNOSES: 1. Term intrauterine at 38 weeks. 2. Preeclampsia. 3. Failed induction of labor. PROCEDURE: A primary low transverse section via Pfannenstiel skin incision. SURGEON: Mahesh Moreira MD. ANESTHESIA: Via epidural. INTRAVENOUS FLUIDS: Per anesthesia record. ESTIMATED BLOOD LOSS: 1000 cc. SPECIMENS: Placenta and cord for gases. FINDINGS: 1. Viable infant, Apgars 9 at 1 and 9 at 5. 2. Placenta removed manually intact, 3-vessel cord noted. 3. Grossly normal adnexa bilaterally. COMPLICATIONS: None apparent. PROCEDURE IN DETAIL: The patient was taken to the operating room where epidural anesthesia was achieved without difficulty. The patient was then prepped and draped in normal sterile fashion in the dorsal supine position. A Estevez catheter had been placed and SCDs were on and functioning normally. At this point, a Pfannenstiel skin incision was made, extended downward to the underlying subcutaneous fat to the level of the fascia, which was then nicked in the midline with a scalpel and excised bilaterally using the Montalvo scissors. The fascial incision was then grasped superiorly and inferiorly with Madi clamps times 2, tented upward, and sharply dissected from the underlying rectus muscle using the Bovie cautery and the Montalvo scissors. Rectus muscles were then bluntly in the midline. The peritoneal cavity was entered bluntly at the superior aspect of the incision. The peritoneal incision was then extended bilaterally using the Metzenbaum scissors. A bladder blade was placed into the pelvis and a bladder flap was created by excising the anterior leaf of the broad ligament off of the lower uterine segment using the Metzenbaum scissors. A low transverse incision was made, extended superiorly and inferiorly using the Pelosi method. The 's head was found to be extended and a vacuum was placed to head. Flexion was performed and the infant was delivered atraumatically. No traction was placed on the neck. Following delivery of the head, the vacuum was removed not revealing any evidence of trauma. The infant OPERATIVE REPORT [id number] CHRISTINA FRANCIS was then delivered atraumatically and bulb suctioned immediately upon delivery. The cord was clamped times 2, cut, and the was handed to the awaiting nursery team. At this point, cord was obtained for gases. Placenta was then manually removed intact. Uterus was exteriorized, cleared of all clots and debris. The uterine incision was then repaired with 0 Vicryl in a running locked fashion times 2. The posterior cul-de-sac was then thoroughly irrigated and the uterus was replaced into the pelvis. Excellent hemostasis was noted and the anterior cul-de-sac was then thoroughly irrigated. Counts were correct times 2. The fascia was repaired with 0 loop PDS times 1 and the skin repaired with jasmin. The patient tolerated the procedure well, transferred to postanesthesia recovery stable without incident. TRANSINT:[id number] Voice Confirmation ID: [id number] DOCUMENT ID: [id number] MAHESH MOREIRA MD at 0917 CC: [id number] DICTATION DATE: 07/25/16 1211 [employer] FABRICATOR: 07/25/162027 DIS IN 07/25/16 [facility] [address] [place] [address]
== END 2016-07-25 12:00 | disposition home or self-care (01) | DRG 766 ==
LOC: D.LD 05:05 → D.WS 05:05 → D.LD 11:08 → D.WS 07-23 10:16
PROVIDERS: ADMIT Obstetrics & Gynecology
PROC: 10D00Z1 Extraction of Products of Conception, Low, Open Approach (ICD-10-PCS; principal; 2016-07-23 07:30)
PROC: 3E033VJ Introduction of Other Hormone into Peripheral Vein, Percutaneous Approach (ICD-10-PCS; principal; 2016-07-23 07:30)
DX: O11.4 Pre-existing hypertension with pre-eclampsia, complicating childbirth (principal); O99.824 Streptococcus B carrier state complicating childbirth; O24.12 Pre-existing type 2 diabetes mellitus, in childbirth; E11.9 Type 2 diabetes mellitus without complications; Z79.84 Long term (current) use of oral hypoglycemic drugs; O99.214 Obesity complicating childbirth; O99.334 Smoking (tobacco) complicating childbirth; O61.0 Failed medical induction of labor; O99.324 Drug use complicating childbirth; F12.90 Cannabis use, unspecified, uncomplicated; Z3A.38 38 weeks gestation of pregnancy; Z37.0 Single live birth

== ENCOUNTER 2018-06-26 07:15 | Day surgery (SDC) | payer MEDICAID ==
[~2018-06-26] VITALS: Ht 175.3 cm; Wt 98.4 kg
--- NOTE | ~2018-06-26 | OP ---
PATIENT NAME: CHRISTINA FRANCIS MEDICAL RECORD: [id number] :85 LOCATION:D.OPS ADMISSION DATE: SURGEON: ZANDER MOREIRA MD DATE OF OPERATION: 06/26/2018 PREOPERATIVE DIAGNOSIS: IUD with retracted string. POSTOPERATIVE DIAGNOSIS: IUD with retracted string. PROCEDURES: Hysteroscopy, D&C, and removal of IUD. SURGEON: Zander Moreira MD ANESTHESIA: General endotracheal. INTRAVENOUS FLUIDS: Per anesthesia record. ESTIMATED BLOOD LOSS: Minimal. SPECIMENS: Included IUD. FINDINGS: 1. Grossly normal-appearing external genitalia and cervix. 2. IUD noted to be in the endometrial canal with a retracted string. 3. Otherwise, normal-appearing endometrial cavity. SPECIMENS: IUD. COMPLICATIONS: None apparent. PROCEDURE IN DETAIL: The patient was taken to the operating room, where general anesthesia was achieved without difficulty. The patient was then prepped and draped in normal sterile fashion in the dorsal lithotomy position in the [facility]. Following prep and drape, the bladder was drained of approximately 100 cc of clear yellow urine. A Graves speculum was then placed in the vagina and the cervix was grasped on the anterior lip using a single-tooth tenaculum. No IUD string was noted at the cervical os. At this point, the 3-mm hysteroscope was used to enter the endocervical canal under direct visualization. Within 3 cm of insertion, the IUD string was visible and a hysteroscopic grasper was used to grasp the string and hysteroscope was removed with the IUD. No significant bleeding was noted from the cervix. At this time, the tenaculum was removed from the anterior lip of the cervix and speculum was removed. The patient tolerated the procedure well. She was transported to postanesthesia recovery stable without incident. TRANSINT:[id number] Voice Confirmation ID: [id number] DOCUMENT ID: [id number] OPERATIVE REPORT [id number] CHRISTINA FRANCIS ZANDER MOREIRA MD CC: [id number] DICTATION DATE: 07/25/18700 [employer] SUPERVISOR: 07/25/18 1149 [facility] 06/26/18 [place] [id number]
[2018-06-26 07:30] LABS: BASOPHILS 0.2 % (0-2); EOSINOPHILS 1.4 % (0-7); HEMATOCRIT 45.3 % (36.0-48.0); HEMOGLOBIN 15.2 g/dL (12-16); IMMATURE GRANULOCYTES 0.2 % (0-5); LYMPHOCYTES 21.4 % (15-50); MCHC 33.6 g/dL (31.0-37.0); MCV 92.3 fL (80.0-100.0); MEAN PLATELET VOLUME 11.2 fL (7.4-10.4); MONOCYTES 6.2 % (2-11); NEUTROPHILS 70.6 % (40-80); RBC 4.91 10x6/uL (4.00-5.40); RDW 12.8 % (11.5-14.5); WBC 5.8 10x3/uL (4.8-10.8)
[2018-06-26 07:31] LABS: PLATELET COUNT 159 10x3/uL (130-400)
[2018-06-26 08:01] VITALS: BP 111/54; BMI 32.1
[2018-06-26 09:13] VITALS: Ht 175.3 cm; Wt 98.4 kg
[2018-06-26 09:41] LABS: HCG URINE NEGATIVE (NEGATIVE)
--- NOTE | 2018-06-26 11:20 | NUR ---
REC'D FROM RR. FAMILY AT BEDSIDE. FL TRAY AND CRANBERRY JUICE BROUGHT TO PT.
--- NOTE | 2018-06-26 11:50 | NUR ---
TOLERATED FL TRAY. NO URGE TO VOID. CRANBERRY JUICE BROUGHT TO PT. LAURA AT BEDSIDE.
--- NOTE | 2018-06-26 12:00 | NUR ---
AMBULATED TO BATHROOM AND VOIDED WITHOUT DIFFICULTY.
--- NOTE | 2018-06-26 12:20 | NUR ---
WRITTEN AND VERBAL DC INST. GIVEN TO PT. VERBALIZED UNDERSTANDING.
--- NOTE | 2018-06-26 12:33 | NUR ---
DC'D HOME WITH FAMILY VIA PRIVATE VEHICLE. TAKEN TO VEHICLE VIA WC. STABLE AT TIME OF DC.
== END 2018-06-26 12:33 | disposition home or self-care (01) ==
LOC: D.OPS 07:15 → D.PAN 09:15 → D.OPS 12:33
PROVIDERS: ATTEND Obstetrics & Gynecology
DX: T83.32XA Displacement of intrauterine contraceptive device, initial encounter (principal)